=== PATIENT | female | born 1995 | race Caucasian/White ===

== ENCOUNTER 2020-10-02 10:23 | Emergency (ER) | payer OTHER ==
[2020-10-02 10:38] VITALS: RESP 18
--- NOTE | 2020-10-02 11:18 | ED ---
Head Injury HPI - General Chief complaint: Head Injury Stated complaint: head injury Source: patient, RN notes reviewed Mode of arrival: ambulatory Limitations: no limitations - History of Present Illness Initial comments: 24-year-old well-appearing white female presents emergency room complaining of some confusion and forgetfulness after dropping a crock pot lid on top of her head yesterday morning around 9:30. Patient states she did not lose consciousness. She has been having headaches since. She states that she drove herself to the emergency room with her child for evaluation after calling her primary care doctor's office. Patient states that her symptoms are intermittent and she feels okay right now. She denies any nausea vomiting or diarrhea. She does state that she needs a note for work MD Complaint: head injury -: days(s) (1) Mechanism of Injury: other (lid to crock pot fell on her head at 0930 yesterday) Location: parietal Loss of Consciousness: no Previous Trauma to this Area: No Place: home Radiation: none Severity scale (1-10): 6 Consistency: intermittent Other Injuries: none Associated Symptoms: confusion (forgetful) - Related Data Home Medications Medication Instructions Recorded Confirmed Albuterol Sulfate [Ventolin HFA] 2 puff INHALATION RT-Q4H PRN 10/02/20 10/02/20 Drospir/Ethi 3-0.02 Mg 1 tab PO HS 10/02/20 10/02/20 Ibuprofen [Motrin] 800 mg PO Q8H PRN 10/02/20 10/02/20 Montelukast [Singulair] 10 mg PO HS 10/02/20 10/02/20 Pantoprazole [Protonix] 40 mg PO HS 10/02/20 10/02/20 buPROPion HCL [buPROPion HCL Xl] 150 mg PO HS 10/02/20 10/02/20 Allergies/Adverse reactions: Allergies Allergy/AdvReac Type Severity Reaction Status Date / Time No Known Allergies Allergy Verified 10/02/20 10:38 Review of Systems ROS Statement: Those systems with pertinent positive or pertinent negative responses have been documented in the HPI. ROS Other: All systems not noted in ROS Statement are negative. Past Medical History Past Medical History: Asthma History of Any Multi-Drug Resistant Organisms: None Reported Past Surgical History: Appendectomy, Section Past Psychological History: No Psychological Hx Reported, Anxiety, Depression Smoking Status: Never smoker Past Alcohol Use History: Rare Past Drug Use History: None Reported General Exam Limitations: no limitations General appearance: alert, in no apparent distress Head exam: Present: atraumatic, normocephalic, normal inspection Eye exam: Present: normal appearance, PERRL, EOMI. Absent: scleral icterus, conjunctival injection, nystagmus, periorbital swelling Pupils: Present: normal accommodation ENT exam: Present: normal exam, normal oropharynx, mucous membranes moist Neck exam: Present: normal inspection, full ROM. Absent: tenderness, meningismus, lymphadenopathy, thyromegaly Respiratory exam: Present: normal lung sounds bilaterally. Absent: respiratory distress, wheezes, rales, rhonchi, stridor, chest wall tenderness, accessory muscle use, decreased breath sounds, prolonged expiratory Cardiovascular Exam: Present: regular rate, normal rhythm, normal heart sounds. Absent: systolic murmur, diastolic murmur, rubs, gallop, clicks GI/Abdominal exam: Present: soft, normal bowel sounds. Absent: distended, tenderness, guarding, rebound, rigid Extremities exam: Present: full ROM. Absent: tenderness, normal capillary refill Back exam: Present: normal inspection, full ROM. Absent: tenderness, CVA tend erness (R), CVA tenderness (L), muscle spasm, paraspinal tenderness, vertebral tenderness Neurological exam: Present: alert, oriented X3, CN II-XII intact Expanded Patient oriented to: Present: person, place, time Speech: Present: fluid speech Cranial nerves: EOM's Intact: Normal, Gag Reflex: Normal, Tongue Deviation: Normal Cerebellar function: Finger to Nose: Normal, Heel to [place]: Normal, Romberg: Normal Eye Response: (4) open spontaneously Motor Response: (6) obeys commands Verbal Response: (5) oriented Gianfranco Total: 15 Psychiatric exam: Present: normal affect, normal mood Skin exam: Present: warm, dry, intact, normal color. Absent: rash, cyanosis, diaphoretic, erythema, petechiae, pallor, mottled Course Vital Signs 10/02/20 10/02/20 10:31 11:33 Temperature 98.3 F 98.0 F Pulse Rate 92 81 Respiratory 18 18 Rate Blood Pressure 134/83 125/88 O2 Sat by Pulse 98 100 Oximetry Medical Decision Making - Medical Decision Making Patient is well-appearing alert and oriented 4, GCS of 15, there is no evidence of head trauma there was no loss of consciousness. Patient is not on any blood thinners. She has no focal neurological deficits. Head is atraumatic. Speech is clear and gait is steady. Patient states that she felt a little more forgetful. Patient will be directed to follow up with her primary care doctor for mild concussion, directed to take Tylenol as needed for headaches. To return if any worsening symptoms. Case discussed with Dr. Overton Disposition Clinical Impression: Concussion without loss of consciousness Disposition: HOME SELF-CARE Condition: Good Instructions (If sedation given, give patient instructions): Concussion (ED) Additional Instructions: Do not drive until cleared by primary care doctor due to episodes of confusion and forgetfulness. Follow-up with your primary Doctor this week. Tylenol as needed for pain. Return with worsening symptoms. Is patient prescribed a controlled substance at d/c from ED?: No Referrals: Tyrese Beach MD [Primary Care Provider] - 1-2 days Time of Disposition: 11:21
[2020-10-02 11:37] VITALS: BP 125/88; PULSE 81; TEMP 98
== END 2020-10-02 11:37 | disposition home or self-care (01) ==
LOC: EC 10:23
DX: S06.0X0A Concussion without loss of consciousness, initial encounter (principal); J45.909 Unspecified asthma, uncomplicated; Z79.51 Long term (current) use of inhaled steroids; W20.8XXA Other cause of strike by thrown, projected or falling object, initial encounter
CPT/HCPCS: 99284

== ENCOUNTER 2020-10-04 09:45 | Emergency (ER) | payer OTHER ==
--- NOTE | 2020-10-04 10:54 | ED ---
General Adult HPI - General Chief complaint: Neuro Symptoms/Deficit Stated complaint: Concussion Time Seen by Provider: 10/04/20 10:30 Source: patient, RN notes reviewed Mode of arrival: ambulatory Limitations: no limitations - History of Present Illness Initial comments: Patient is a pleasant 24-year-old female presenting to the emergency department with concern for concussion. Incident occurred a couple of days ago. Patient was reaching for a crock pot when the lid fell and hit her in the head. No loss of consciousness. Patient has been having headaches. Patient this morning had paresthesias right greater than left hand as well as right foot. No weakness. Patient states she needs to concentrate a little bit more to say her words. Patient does have history of similar symptoms previously associated with concussion. - Related Data Home Medications Medication Instructions Recorded Confirmed Albuterol Sulfate [Ventolin HFA] 2 puff INHALATION RT-Q4H PRN 10/02/20 10/02/20 Drospir/Ethi 3-0.02 Mg 1 tab PO HS 10/02/20 10/02/20 Ibuprofen [Motrin] 800 mg PO Q8H PRN 10/02/20 10/02/20 Montelukast [Singulair] 10 mg PO HS 10/02/20 10/02/20 Pantoprazole [Protonix] 40 mg PO HS 10/02/20 10/02/20 buPROPion HCL [buPROPion HCL Xl] 150 mg PO HS 10/02/20 10/02/20 Allergies Allergy/AdvReac Type Severity Reaction Status Date / Time No Known Allergies Allergy Verified 10/04/20 09:51 Review of Systems ROS Statement: Those systems with pertinent positive or pertinent negative responses have been documented in the HPI. ROS Other: All systems not noted in ROS Statement are negative. Constitutional: Denies: fever Eyes: Denies: eye pain ENT: Denies: ear pain Respiratory: Denies: cough Cardiovascular: Denies: chest pain Endocrine: Denies: fatigue Gastrointestinal: Denies: abdominal pain Genitourinary: Denies: urgency Musculoskeletal: Denies: back pain Skin: Denies: rash Neurological: Reports: as per HPI, headache, paresthesias Past Medical History Past Medical History: Asthma History of Any Multi-Drug Resistant Organisms: None Reported Past Surgical History: Appendectomy, Section Past Psychological History: Anxiety, Depression Smoking Status: Never smoker Past Alcohol Use History: Rare Past Drug Use History: None Reported General Exam Limitations: no limitations General appearance: alert, in no apparent distress Head exam: Present: normocephalic Eye exam: Present: normal appearance, PERRL, EOMI ENT exam: Present: normal oropharynx Neck exam: Present: normal inspection. Absent: tenderness, meningismus Respiratory exam: Present: normal lung sounds bilaterally Cardiovascular Exam: Present: regular rate, normal rhythm GI/Abdominal exam: Present: soft. Absent: tenderness Neurological exam: Present: alert, CN II-XII intact. Absent: motor sensory deficit Expanded Neurological exam: Present: protecting the airway Speech: Present: fluid speech Sensory exam: Upper Extremity Light Touch: Normal, Lower Extremity Light Touch: Normal Motor strength exam: RUE: 5, LUE: 5, RLE: 5, LLE: 5 Eye Response: (4) open spontaneously Motor Response: (6) obeys commands Verbal Response: (5) oriented Psychiatric exam: Present: normal affect, normal mood Skin exam: Present: normal color Course Vital Signs 10/04/20 10/04/20 10/04/20 09:51 10:55 11:00 Temperature 97.9 F Pulse Rate 98 Respiratory 18 16 16 Rate Blood Pressure 122/79 O2 Sat by Pulse 96 Oximetry Medical Decision Making - Medical Decision Making Patient reevaluated and resting comfortably in bed. Patient does not want any Tylenol this time. Patient does request work no. Patient updated on results and need for follow-up - Radiology Data Radiology results: report reviewed (Computed tomography scan of the brain reveals no acute process) Disposition Clinical Impression: Concussion without loss of consciousness Disposition: HOME SELF-CARE Condition: Stable Instructions (If sedation given, give patient instructions): Concussion (ED) Additional Instructions: [id number] Tylenol as needed. Please follow-up with primary care physician in the next couple days for recheck. Return for weakness, confusion, worsening or changing symptoms or other concerns. Is patient prescribed a controlled substance at d/c from ED?: No Referrals: Tyrese Beach MD [Primary Care Provider] - 1-2 days Time of Disposition: 11:51
--- NOTE | 2020-10-04 11:18 | CT ---
EXAMINATION TYPE: CT brain wo con DATE OF EXAM: 10/04/2020 COMPARISON: None. HISTORY: Concussion, numbness in right arm and hand CT DLP: 1099.4 mGycm. Automated Exposure Control for Dose Reduction was Utilized. TECHNIQUE: CT scan of the head is performed without contrast. FINDINGS: There is no acute intracranial hemorrhage, mass effect, or midline shift identified. The ventricles and sulci are within normal limits in size. Saeed-white matter differentiation is maintain ed. The globes are intact and the visualized sinuses are clear. The calvarium is intact. IMPRESSION: Unremarkable study.
[2020-10-04 11:35] VITALS: RESP 16
[2020-10-04 12:03] VITALS: BP 115/77; PULSE 88; TEMP 98.2
== END 2020-10-04 12:01 | disposition home or self-care (01) ==
LOC: EC 09:45
DX: S06.0X0A Concussion without loss of consciousness, initial encounter (principal); J45.909 Unspecified asthma, uncomplicated; F32.9 Major depressive disorder, single episode, unspecified; F41.9 Anxiety disorder, unspecified; Z79.1 Long term (current) use of non-steroidal anti-inflammatories (NSAID); Z79.51 Long term (current) use of inhaled steroids; Z79.899 Other long term (current) drug therapy; W20.8XXA Other cause of strike by thrown, projected or falling object, initial encounter
CPT/HCPCS: 70450; 99283